=== PATIENT | male | born 1980 | race Caucasian/White ===

== ENCOUNTER 2017-04-19 16:48 | Emergency (ER) ==
[2017-04-19 16:54] VITALS: BP 148/91; TEMP 99.1; BMI 25.4
--- NOTE | 2017-04-19 17:53 | ED.PDOC ---
General ED Provider: Dr. SHERRI TIRADO Chief Complaint: Behavioral Complaint Stated Complaint: Bipolar; seen by PCP - pressured speech; need for MH eval Time Seen by Physician: 17:40 Mode of Arrival: Walk-In Information Source: Patient Exam Limitations: No limitations, Other (Rambling speach; tangential thoughts) Primary Care Provider: KARINA SERNA Nursing and Triage Documentation Reviewed and Agree: Yes Review of Systems - Review Of Systems Constitutional: Reports: No symptoms Respiratory: Reports: No symptoms. Denies: Cough, Orthopnea Skin: Reports: No symptoms Neurological: Reports: Anxiety All Other Systems: Reviewed and Negative Past Medical History - Past Medical History Previously Healthy: No (Bipolar; gender identity) Endocrine: Reports: None Cardiovascular: Reports: Hypertension Respiratory: Reports: None Hematological: Reports: None Gastrointestinal: Reports: None Genitourinary: Reports: None Neuro/Psych: Reports: Anxiety, Depression, Bipolar Disorder Musculoskeletal: Reports: None Cancer: Reports: None - Surgical History General Surgical History: Reports: Other (nasal surgery) - Family History Family History: Reports: Unknown - Social History Smoking Status: Current every day smoker Hx Substance Use: No Alcohol Screening: None Physical Exam - Physical Exam Appearance: Well-appearing Eyes: MELISSA, EOMI ENT: Ears normal, Nose normal, Oropharynx normal Neck: Supple Respiratory: Airway patent, Breath sounds clear, Respirations nonlabored GI/: Soft, Nontender Skin: Warm, Dry, Normal color Neurological: Sensation intact, Motor intact Psychiatric: Anxious (tangential thoughts; pressured speach) Critical Care Note - Critical Care Note Total Time (mins): 25 Course - Course Orders, Labs, Meds: Lab Review 04/19/17 17:25 Urine Color Yellow Urine Clarity Clear Urine pH 7.0 Ur Specific [place] 1.020 Urine Protein 1+ Urine Glucose (UA) Negative Urine Ketones Negative Urine Blood Negative Urine Nitrite Negative Urine Bilirubin Negative Urine Urobilinogen 1.0 Ur Leukocyte Esterase Negative Urine Microscopic RBC 0-2 Urine Microscopic WBC 0-2 Ur Squamous Epith Cells 0-2 Urine Opiates Screen Negative Ur Oxycodone Screen Negative Urine Methadone Screen Negative Ur Propoxyphene Screen Negative Ur Barbiturates Screen Negative U Tricyclic Antidepress Negative Ur Phencyclidine Scrn Negative Ur Amphetamine Screen Positive U Methamphetamines Scrn Negative U Benzodiazepines Scrn Positive Urine Cocaine Screen Negative U Cannabinoids Screen Positive Orders Category Date Time Status CBC W/ AUTO DIFF Stat LAB 04/19/17 18:00 Ordered COMPREHENSIVE METABOLIC PANEL Stat LAB 04/19/17 18:00 Ordered THYROID STIMULATING HORMONE Stat LAB 04/19/17 18:00 Ordered URINALYSIS C & S IF INDICATED Stat LAB 04/19/17 17:25 Completed URINE DRUG SCREEN (RAPID FOR ED) [DRUG SCREEN, URINE, LAB 04/19/17 17:25 Completed RAPID] Stat Vital Signs: Temp Pulse Resp BP Pulse Ox 04/19/17 16:49 99.1 F 89 20 148/91 H 98 Departure - Departure Time of Disposition: 18:51 Disposition: HOME SELF-CARE Discharge Problem: Manic behavior Instructions: Bipolar Disorder (ED) Condition: Stable Pt referred to PMD for follow-up: Yes Allergies/Adverse Reactions: Allergies No Known Allergies Allergy (Verified 04/19/17 16:56) Home Medications: Ambulatory Orders Dextroamphetamine/Amphetamine [Adderall 30 mg Tablet] 30 mg PO BID #14 tablet Escitalopram Oxalate [Lexapro] 10 mg PO QID #30 tablet 07/23/16 Diazepam [Valium] 10 mg PO QID #120 10/11/16 Hydroxyzine Pamoate [Vistaril] 50 mg PO BEDTIME #60 10/11/16 Temazepam [Restoril] 30 mg PO BEDTIME #30 10/11/16 Disposition Discussed With: Patient, Family (Mom; states used to be able to control manic phases with seroquil prn)
[2017-04-19 18:13] LABS: ADD URINE MICROSCOPIC YES; BILIRUBIN,URINE Negative (NEGATIVE); KETONES,URINE Negative (NEGATIVE); LEUKOCYTE ESTERASE ,URINE Negative (NEGATIVE); NITRITE,URINE Negative (NEGATIVE); PROTEIN,URINE 1+ (NEGATIVE); URINE, BLOOD Negative (NEGATIVE)
[2017-04-19 18:20] LABS: COCAIN SCREEN,URINE NEGATIVE (NEGATIVE)
== END 2017-04-19 19:02 | disposition home or self-care (01) ==
LOC: ED 16:48
DX: F30.9 Manic episode, unspecified (principal); F31.9 Bipolar disorder, unspecified; F41.9 Anxiety disorder, unspecified; F17.200 Nicotine dependence, unspecified, uncomplicated; Z79.899 Other long term (current) drug therapy
CPT/HCPCS: 80306; 81001; 99283

== ENCOUNTER 2019-08-03 13:12 | Outpatient (CLI) | END 2019-08-03 13:13 | disposition home or self-care (01) | LOC: AMBL 13:12 | PROVIDERS: ATTEND Internal Medicine | DX: R40.20 Unspecified coma (principal); R11.2 Nausea with vomiting, unspecified; R00.1 Bradycardia, unspecified; R73.9 Hyperglycemia, unspecified ==